=== PATIENT | female | born 1985 | race Caucasian/White ===

== ENCOUNTER 2017-10-05 13:38 | Outpatient (CLI) | payer BC ==
--- NOTE | 2017-10-05 14:59 | RAD ---
SIX VIEWS OF THE LUMBOSACRAL SPINE: Comparison: None. History: Low back pain. FINDINGS: AP, lateral, oblique, and flexion and extension views of the lumbosacral spine were performed. The vertebral bodies and intervertebral discs demonstrate normal height and alignment without fractur e or subluxation. No degenerative changes are seen. Alignment is unchanged with bending. IMPRESSION: Unremarkable exam. POS: [facility]
--- NOTE | 2017-10-05 15:01 | RAD ---
THREE VIEWS CERVICAL SPINE: COMPARISON: None. HISTORY: Cervicalgia. FINDINGS: Three views of the cervical spine shows normal height and alignment of the vertebral bodies and inter vertebral disks without fracture or subluxation. No prevertebral soft tissue swelling is seen. No s ignificant degenerative changes are present. Alignment is unchanged with flexion and extension. FINDINGS: No significant cervical spine abnormality. POS: [facility]
== END 2017-10-05 13:39 | disposition home or self-care (01) ==
LOC: TBSIIMAG 13:38
PROVIDERS: ATTEND Neurological Surgery
DX: M54.2 Cervicalgia (principal); M54.5 Low back pain
CPT/HCPCS: 72040; 72100

== ENCOUNTER 2023-05-25 10:29 | Day surgery (SDC) | payer OTHER ==
[2023-04-18 10:49] VITALS: BMI 19.0
[2023-05-25] MEDS ORDERED: Bupivacaine PF 0.5% 30 ML VIAL ONE (11:50)
[2023-05-25] MEDS ORDERED: CEFAZOLIN 2 GM VIAL ONE (12:13)
[2023-05-25] MEDS ORDERED: Sodium Chloride 0.9% 100 ML ONE (12:13)
[2023-05-25] MEDS ORDERED: Fentanyl 250 MCG/5 ML VIAL ONE ×2 (12:39→15:34)
[2023-05-25] MEDS ORDERED: Midazolam HCl 2 mg/2 ml Vial ONE (12:39)
[2023-05-25] MEDS ORDERED: Dexamethasone 20 MG/5 ML VIAL ONE (12:45)
[2023-05-25] MEDS ORDERED: Ketorolac Tromethamine 30 MG/ML VIAL ONE (12:45)
[2023-05-25] MEDS ORDERED: Ondansetron PF 4 MG/2 ML Vial ONE (12:45)
[2023-05-25] MEDS ORDERED: PROPOFOL 200 MG/20 ML VIAL ONE (12:45)
[2023-05-25] MEDS ORDERED: Meperidine HCl/PF 25 MG/ML VIAL ONE (15:18)
[2023-05-25] MEDS ORDERED: Promethazine HCl 25 MG/ML VIAL ONE (17:26)
== END 2023-05-25 18:05 | disposition home or self-care (01) ==
LOC: SDC 10:29
PROVIDERS: ATTEND Orthopaedic Surgery
PROC: 0SPS0JZ Removal of Synthetic Substitute from Left Hip Joint, Femoral Surface, Open Approach (ICD-10-PCS; principal; 2023-05-25)
DX: T85.848A Pain due to other internal prosthetic devices, implants and grafts, initial encounter (principal); S72.492A Other fracture of lower end of left femur, initial encounter for closed fracture; Z90.49 Acquired absence of other specified parts of digestive tract; Z79.899 Other long term (current) drug therapy; Y83.1 Surgical operation with implant of artificial internal device as the cause of abnormal reaction of the patient, or of later complication, without mention of misadventure at the time of the procedure
CPT/HCPCS: J1100; J1885; J2175; J2250; J2405; J2550; J2704; J3010; J3490; S0020